=== PATIENT | female | born 1950 | race Caucasian/White ===

== ENCOUNTER 2016-08-18 09:54 | Day surgery (SDC) | payer OTHER ==
[~2016-08-18] VITALS: Ht 188 cm; Wt 94.5 kg
[~2016-08-18 09:54] MED LIST: ASCO500T25 PO; ASPI-535 PO; BUSP10TA2 PO; HYOS0.12 PO; LEVO150T67 PO; OMEG-135 PO
[2016-08-18] MEDS ORDERED: CEFAZOLIN 2 GM/50 ML (PMX) 50 ML IVPB ONE (11:00)
[2016-08-18] MEDS ORDERED: SOD CHLORIDE 0.9% 1,000 ML IV ONE (11:00)
[2016-08-18 11:14] VITALS: BP 104/63; PULSE 73; RESP 16
[2016-08-18 11:19] VITALS: Ht 188 cm; Wt 94.5 kg
[2016-08-18] MEDS ORDERED: AMIT10TA6 PO (11:26)
[2016-08-18] MEDS ORDERED: BUPIVACAINE 0.25% (MPF) 30 ML INJ ONE (11:31)
[2016-08-18] MEDS ORDERED: FENTAnyl 50 MCG/ML VIAL ONE (11:46)
[2016-08-18] MEDS ORDERED: PROPOFOL 40 ML ONE (11:46)
[2016-08-18] MEDS ORDERED: LIDOCAINE 2% (SDV) 5 ML INJ ONE (11:46)
[2016-08-18] MEDS ORDERED: LIDOCAINE 1% (MPF) 30 ML INJ INJ ONE (11:58)
[2016-08-18] MEDS ORDERED: BUPIVACAINE 0.25% (MPF) 30 ML INJ INJ ONE (11:58)
[2016-08-18] MEDS ORDERED: hydrALAzine 20 MG INJ IV PRN (12:00)
[2016-08-18] MEDS ORDERED: DIPHENHYDRAMINE 50 MG INJ IV PRN (12:00)
[2016-08-18] MEDS ORDERED: EPHEDrine SULFATE 50 MG/5 ML SYG IV PRN (12:00)
[2016-08-18] MEDS ORDERED: FENTAnyl 50 MCG/ML VIAL IV PRN ×3 (12:00)
[2016-08-18] MEDS ORDERED: ONDANSETRON 4 MG INJ IV PRN (12:00)
[2016-08-18] MEDS ORDERED: MEPERIDINE 25 MG INJ IV PRN (12:00)
[2016-08-18] MEDS ORDERED: LABETALOL HCL 20MG INJ IV PRN (12:00)
[2016-08-18] MEDS ORDERED: OXYCODONE/ACETAMINOPHEN (5/325) TAB PO PRN (12:00)
[2016-08-18] MEDS ORDERED: LIDOCAINE 1% (MPF) 30 ML INJ ONE (12:03)
[2016-08-18 12:28] VITALS: BP 106/62; PULSE 55
[2016-08-18] MEDS ORDERED: ACETAMINOPHEN/CODEINE #3 TAB PO ONE (12:30)
[2016-08-18 12:33] VITALS: BP 104/60; PULSE 56
[2016-08-18 12:38] VITALS: PULSE 54
[2016-08-18 12:50] VITALS: BP 112/66; PULSE 52
--- NOTE | 2016-08-18 15:23 | OPR ---
DATE OF OPERATION: 08/18/2016 INDICATION: This is a 66-year-old female with a small left thumb cyst. She requests surgical excis ion. Risks, alternatives, benefits, and personnel were discussed with the patient. The patient exp ressed his understanding and consents to the operation. PREOPERATIVE DIAGNOSIS: Left thumb cyst. POSTOPERATIVE DIAGNOSIS: Left thumb cyst. OPERATION PERFORMED: 1. Excision of left dorsal thumb cyst with a 1 cm size incision and a 0.5 cm size cyst. 2. Localized adjacent tissue transfer with the use of skin flaps, 0.5 cm sq defect. 3. Left thumb ring block. SURGEON: Thais Santiago MD SPECIENS: None. COMPLICATIONS: None. ANESTHESIA: MAC. DESCRIPTION OF PROCEDURE: The patient was taken to the OR and prepped and draped in the usual steri le fashion. Surgical time out was performed. IV antibiotics were given. Incision is made over the left dorsal aspect of the left thumb. Dissection cautery was carried down to the cystic duct which was excised with a 15 blade. There was minimal fluid excised along with the cyst. Due to the tiss ue defect, localized adjacent tissue transfer with the use of skin flaps. Multilayer closure with i nterrupted 3-0 Vicryl and Dermabond. Local anesthesia and ring block was placed at the beginning of the case. Dictated By: THAIS STALLWORTH/RANDALL Conf#: [id number] DID#: [id number]
== END 2016-08-18 13:20 | disposition home or self-care (01) ==
LOC: SDS 09:54
PROVIDERS: ATTEND Surgery
DX: L72.8 Other follicular cysts of the skin and subcutaneous tissue (principal)
CPT/HCPCS: 14040; J3010; Z7512; Z7610